=== PATIENT | male | born 1950 | race Caucasian/White ===

== ENCOUNTER 2018-11-20 02:42 | Inpatient (IN) | payer MEDICARE ==
--- NOTE | 2018-11-20 02:53 | ED ---
Chest Pain HPI - General Stated Complaint: Chest Pain Time Seen by Provider: 11/20/18 02:48 - History of Present Illness Initial Comments: 's patient is 68-year-old man transferred here from [facility]. The patient states that he had gone there tonight after he noticed having some substernal chest pain that developed around 12:30 this morning. Patient states that he had been trying to sleep at the time. He rated the pain is moderate, 5 out of 10 intensity. Patient had gone to the hospital where they reportedly found ST elevations inferiorly with reciprocal changes laterally. The patient did receive thrombolytic and transferred here. Patient states that his pain continues at about 3 out of 10 intensity. The patient states that he does not follow with the physician. No known medical history. He does smoke between 2 and 3 packs of cigarettes per week. MD Complaint: chest pain Onset/Timin -: hour(s) Onset: during rest Pain Location: substernal Pain Radiation: none Severity: moderate Severity scale (1-10): 5 Quality: heaviness Consistency: constant Improves With: nothing Worsens With: nothing Treatments Prior to Arrival: aspirin, nitroglycerin, other - Related Data Home Medications Medication Instructions Recorded Confirmed No Known Home Medications 11/20/18 11/20/18 Allergies Allergy/AdvReac Type Severity Reaction Status Date / Time No Known Allergies Allergy Verified 11/20/18 07:41 Review of Systems ROS Statement: Those systems with pertinent positive or pertinent negative responses have been documented in the HPI. ROS Other: All systems not noted in ROS Statement are negative. Constitutional: Denies: fever, chills Respiratory: Denies: cough, dyspnea Cardiovascular: Reports: chest pain. Denies: palpitations, edema Gastrointestinal: Denies: abdominal pain, vomiting, melena, hematochezia Genitourinary: Denies: dysuria, hematuria Musculoskeletal: Denies: back pain Skin: Denies: rash Neurological: Denies: headache, weakness Hematological/Lymphatic: Denies: easy bleeding EKG Findings - EKG Results: EKG: interpreted by CELIA, sinus rhythm (Rate 64 bpm), normal axis - SC, Pacemaker, Normal: Myocardial infarction: inferior SC (acute or recent) General Exam General appearance: alert, in no apparent distress Head exam: Present: atraumatic, normocephalic Eye exam: Present: normal appearance. Absent: scleral icterus, conjunctival injection ENT exam: Present: normal oropharynx Neck exam: Present: normal inspection Respiratory exam: Present: normal lung sounds bilaterally. Absent: respiratory distress, wheezes, rales, rhonchi, stridor Cardiovascular Exam: Present: regular rate, normal rhythm, normal heart sounds. Absent: systolic murmur, diastolic murmur, rubs, gallop GI/Abdominal exam: Present: soft. Absent: distended, tenderness, guarding, rebound, rigid, mass Extremities exam: Present: normal inspection, normal capillary refill. Absent: pedal edema, calf tenderness Back exam: Present: normal inspection. Absent: CVA tenderness (R), CVA tenderness (L) Neurological exam: Present: alert Skin exam: Present: warm, dry, intact, normal color. Absent: rash Course Vital Signs 11/20/18 11/20/18 11/20/18 02:42 02:54 03:02 Temperature 98.0 F Pulse Rate 62 72 Respiratory 16 18 18 Rate Blood Pressure 173/85 163/77 O2 Sat by Pulse 98 99 Oximetry - Reevaluation(s) Reevaluation #1: 11/20/18 02:52 Case discussed with cardiology and dental laboratory technician apprentice was activated. Critical Care Time Critical Care Time: Yes (35 minutes) Disposition Clinical Impression: STEMI (ST elevation myocardial infarction) Disposition: ADMITTED IP TO THIS HOSP Condition: Critical Is patient prescribed a controlled substance at d/c from ED?: No
[2018-11-20 03:01] LABS: HCT 38.4 % (39.0-53.0); HGB 13.2 gm/dL (13.0-17.5); MCH 30.2 pg (25.0-35.0); MCHC 34.3 g/dL (31.0-37.0); Mean Platelet Volume 6.8; Platelet Count 243 k/uL (150-450); RBC 4.37 m/uL (4.30-5.90); RDW 14.6 % (11.5-15.5); WBC 13.7 k/uL (3.8-10.6)
[2018-11-20 03:11] LABS: ALT 48 U/L (21-72); AST 45 U/L (17-59); African American GFR (CKD) >90 (>60 ml/min/1.73 sqM); Albumin 3.3 g/dL (3.5-5.0); Alkaline Phosphatase 62 U/L (38-126); Anion Gap 8 mmol/L; Blood Urea Nitrogen 22 mg/dL (9-20); Calcium 7.5 mg/dL (8.4-10.2); Carbon Dioxide 22 mmol/L (22-30); Chloride 112 mmol/L (98-107); Glucose 124 mg/dL (74-99); Potassium 3.3 mmol/L (3.5-5.1); Sodium 142 mmol/L (137-145); Total Bilirubin 0.2 mg/dL (0.2-1.3); Total Protein 6.3 g/dL (6.3-8.2)
[2018-11-20] MEDS ORDERED: fentaNYL (PF) 50 MCG/ML 2 ML AMP ONE (03:31)
[2018-11-20] MEDS ORDERED: LIDOCAINE 1% INJ 10MG/ML (20 ML MDV) ONE (03:31)
[2018-11-20 03:34] LABS: Creatine Kinase MB 2.2 ng/mL (0.0-2.4)
[2018-11-20 03:42] LABS: Troponin I 0.331 ng/mL (0.000-0.034)
[2018-11-20] MEDS ORDERED: LIDOCAINE 1% INJ 10MG/ML (20 ML MDV) SQ ONE ×2 (03:42→03:43)
[2018-11-20] MEDS ORDERED: MIDAZOLAM (PF) 2 MG/2 ML VIAL IVP ONE (03:42)
[2018-11-20] MEDS ORDERED: fentaNYL (PF) 50 MCG/ML 2 ML AMP IVP ONE (03:42)
[2018-11-20] MEDS ORDERED: IV FLUID CONTINUATION 1,000 ML IV ONE (03:44)
[2018-11-20] MEDS ORDERED: BIVALIRUDIN 250 MG in SODIUM CHLORIDE 0.9% 50 ML IV ONE ×4 (03:50)
[2018-11-20] MEDS ORDERED: BIVALIRUDIN BOLUS 250 MG/50 ML IV ONE ×2 (03:50)
[2018-11-20] MEDS ORDERED: CLOPIDOGREL 75 MG TAB ONE (03:54)
[2018-11-20] MEDS ORDERED: CLOPIDOGREL 75 MG TAB PO ONE ×2 (04:00)
[2018-11-20] MEDS ORDERED: IOPAMIDOL-370 125ML BTL INJ ONE (04:02)
[2018-11-20] MEDS ORDERED: ZOLPIDEM 5 MG TAB PO PRN (04:20)
[2018-11-20] MEDS ORDERED: NITROGLYCERIN SL TABS 0.4 MG TAB SUBLINGUAL PRN (04:20)
[2018-11-20] MEDS ORDERED: ATROPINE SULFATE 0.1 MG/ML 10ML SYRINGE IV PRN (04:20)
[2018-11-20] MEDS ORDERED: RX INFO: IV CONTRAST WAS GIVEN 1 EACH MISC MISCELLANE PRN (04:20)
[2018-11-20] MEDS ORDERED: MAG HYDROX/AL HYDROX/SIMETH 30 ML CUP PO PRN (04:20)
[2018-11-20] MEDS ORDERED: SODIUM CHLORIDE 0.9% 1,000 ML IV SCH (04:30)
[2018-11-20 04:50] LABS: Glucose,Whole Blood 127 mg/dL (75-99)
--- NOTE | 2018-11-20 05:22 | CC ---
CARDIAC CATHETERIZATION REPORT INDICATION: Acute inferior wall myocardial infarction. This is a 68-year-old gentleman who presented to [facility] with acute inferior wall myocardial infarction and had been transferred to [facility] following thrombolytic therapy. I have seen the patient for the first time in the laboratory cureman. He still has some chest discomfort and the ST-segment elevation was still noted, but this has improved significantly compared to where the patient was initially. Other than smoking, he does not have any other risk factors. He Is not on any medication. PROCEDURE NOTE: After obtaining informed consent, left heart catheterization and coronary angiogram are performed via the right femoral artery using standard Randi catheters. The patient tolerated the procedure well without any obvious immediate complications. FINDINGS: 1. HEMODYNAMICS: Central aortic pressure is 130/70 mm. 2. ANGIOGRAPHIC DATA: Left main coronary artery is a very small vessel in fact the LAD and circumflex have a separate origin. Circumflex coronary artery is a large dominant vessel that shows a 99% stenosis as it gives off a large OM branch. The LAD shows mild nonobstructive coronary artery disease. Right coronary artery is a small nondominant vessel. On the initial evaluation, it appeared as if the PDA occluded, but it appears that it is just a small nondominant vessel and the lesion is in the circumflex. PLAN: A 99% stenosis involving circumflex coronary artery. Dr. Crawford the on-call door to door salesman has reviewed the angiographic data and he will proceed with angioplasty of the circumflex coronary artery. MMODL / IJN: [id number] /
--- NOTE | 2018-11-20 05:31 | CONS ---
CONSULTATION CHIEF COMPLAINT: Chest pain Tung is a 68-year-old gentleman with no significant past medical history who presented to [facility] with precordial chest pain. It was 8/10 intensity when he first arrived in the emergency room. The pain actually started one or two hours prior. Patient had some chest discomfort over the weekend and that has resolved and came back again early late last night. He lives in [place] and his drove him to hospital where an EKG showed acute inferior wall myocardial infarction. He received thrombolytics and he was transferred to [facility] for further care. I am evaluating the patient for the first time in the hemodialysis lab technician at [facility]. Patient still complains of chest discomfort 3/10 intensity and [address] the ST segments have improved but then not resolved completely. MEDICATIONS: None. ALLERGIES: None. FAMILY HISTORY: Significant for coronary artery disease in mother. SOCIAL HISTORY: Significant for smoking. REVIEW OF SYSTEMS: Review of system is unremarkable other than what has been mentioned so far. On exam VSS stable no jvd chest cta Herat s1s2 abd soft ext no edema pulses palpable copy operator no focal deficits Patient's labs have been reviewed. Hemoglobin is normal. Creatinine is normal. The first set of troponin is slightly elevated. The EKG shows acute inferior wall myocardial infarction. ASSESSMENT: Acute inferior wall myocardial infarction, status post thrombolytic therapy. PLAN: Patient will undergo emergent cardiac catheterization with to performing angioplasty. He understands risks, benefits. KARLA / BRIGIDA: [id number] / MTDD
--- NOTE | 2018-11-20 05:40 | PTCA ---
PERCUTANEOUSTRANS CORORONARY ANGIOGRAPHY Mr. Herrera is a 68-year-old male who presented to the emergency room in [place] with evidence of an acute inferior myocardial infarction, received thrombolytics. Subsequently underwent cardiac catheterization by Dr. Kothari and was found to have a subtotally occluded mid dominant left circumflex. In view of that, recommendation was made regarding angioplasty and stenting. The procedure as well as the risks and the complications were discussed with the patient who is in full understanding and agreement. PROCEDURE: A 6-Chinese FR4 guiding catheter introduced in the system. After cannulating the left circumflex, a 0.014 balanced medium weight J-wire was advanced across the lesion and positioned distal left circumflex. Subsequently a 2.5 x 12 mm Trek balloon was advanced and one inflation at 8 atmospheres was done. Following that the balloon was removed and a 3.5 x 15 mm Xience Linnette stent was advanced, deployed and post dilated at 14 atmospheres. After the last inflation, after appropriate wait, the balloon and the guidewire were withdrawn back in the guiding catheter. Images were obtained, repeated. Those images reveal stable successful stenting. At that point, the guiding catheter, the balloon and the guidewire were removed and a 6-Chinese tight pigtail catheter was introduced in the left ventricle and a 30-degree BLEDSOE view of the left ventricle was obtained. Following that, catheter and sheaths were removed. Hemostasis was obtained with deployment of an Angio-Seal. There was no immediate complication. Patient was returned to his room in stable condition. Of note, the patient received Angiomax per protocol as well as 300 mg of oral clopidogrel. His pain has improved at the end procedure and his EKG changes have improved. He had chest pain and EKG changes with the inflations. RESULTS: 1. Successful stenting of the mid left circumflex with reduction of stenosis from 95% to 0%. 2. Mildly impaired left ventricular systolic function with inferior wall hypokinesis and ejection fraction of 45% with no significant mitral regurgitation. 3. Incidental abdominal aortic aneurysm, infrarenal. RECOMMENDATION: Patient will be continued on aspirin, Plavix, beta torres, SILVANO inhibitor, and statin. The importance of dual antiplatelet treatment was discussed with the patient and his family who are in full understanding and agreement. Duration of procedure is 26 minutes. MMODL / IJN: [id number] /
[2018-11-20 06:11] LABS: INR 1.3 (<1.2); Partial Thromboplastin Time 53.6 sec (22.0-30.0); Prothrombin Time 13.4 sec (9.0-12.0)
[2018-11-20] MEDS ORDERED: Potassium Replacement Protocol 1 EACH MISC MISCELLANE PRN (06:34)
--- NOTE | 2018-11-20 09:03 | US ---
EXAMINATION TYPE: US duplex aorta DATE OF EXAM: 11/20/2018 COMPARISON: NONE CLINICAL HISTORY: AAA. EXAM MEASUREMENTS: Abdominal Aorta: Proximal: 2.3cm Transverse Mid: 3.1cm Transverse Distal: 5.0cm A/P longitudinal Bifurcation: Right VILMA = 1.9cm A/P, Left VILMA = 1.5cm Transverse AAA = 3.6 x 3.5 x 5.0cm with intimal wall plaque especially noted distally. IMPRESSION: Abdominal aortic aneurysm as noted.
[2018-11-20] MEDS: ASPIRIN 81 MG PO SCH ×2 (09:26→09:32)
[2018-11-20] MEDS: METOPROLOL TARTRATE 25 MG TAB PO SCH ×3 (09:26→20:31)
[2018-11-20] MEDS: POTASSIUM CHLORIDE ER 20 MEQ TAB.ER PO SCH ×2 (09:27→10:49)
[2018-11-20] MEDS: LISINOPRIL 10 MG TAB PO SCH ×2 (09:27→09:46)
--- NOTE | 2018-11-20 09:40 | P.PN ---
Subjective Progress Note Date: 11/20/18 Principal diagnosis: Acute inferior wall myocardial infarction This patient was transferred from [facility] last night with acute inferior wall UT after giving thrombolytic therapy. Patient had a cardiac catheterization and stent placement of the dominant circumflex. Patient seemed to be stable at this time. Denies any chest pain or shortness of breath. However, patient has indicated that he he doesn't want to take medications because he doesn't believe in pharmaceutical. He also indicated he may sign out and leave the hospital. I reinforced with him the importance of taking the medications. Clinically however, patient is stable. Ultrasound of the abdomen showed a aneurysm which is about 5 cm in size. A vascular consult is requested. Prognosis is guarded Objective - Vital Signs Vital signs: Vital Signs Temp 97.8 F 11/20/18 04:45 Pulse 60 11/20/18 07:00 Resp 20 11/20/18 07:00 BP 121/65 11/20/18 07:00 Pulse Ox 94 L 11/20/18 07:00 Intake & Output 11/19/18 11/20/18 11/20/18 18:59 06:59 18:59 Intake Total 274 100 Balance 274 100 Weight 68.039 kg Intake: IV 274 100 Sodium Chloride 0.9% 1, 200 100 000 ml @ 100 mls/hr IV . Q10H [facility] Rx#:[id number] - Exam GENERAL EXAM: Patient is alert and oriented and doesn't appear to be in any acute distress HEENT: Normocephalic. Normal reaction of pupils, equal size, normal range of extraocular motion. No erythema or exudates in the throat. NECK: No masses, no nuchal rigidity. CHEST: No chest wall deformity. LUNGS: Equal air entry with no crackles or wheeze. HEART: S1 and S2 normal with no audible mumurs or gallops. Regular rhythm, f emorals equal on both sides.. ABDOMEN: No hepatosplenomegaly, normal bowel sounds, no guarding or rigidity. SKIN: No rashes CENTRAL NERVOUS SYSTEM: No focal deficits. EXTREMITIES: No cyanosis, clubbing or edema. - Labs CBC & Chem 7: 11/20/18 02:50 11/20/18 02:50 Labs: Abnormal Lab Results - Last 24 Hours (Table) 11/20/18 11/20/18 11/20/18 Range/Units 02:50 02:50 02:50 WBC 13.7 H (3.8-10.6) k/uL Hct 38.4 L (39.0-53.0) % PT (9.0-12.0) sec INR (<1.2) APTT (22.0-30.0) sec Potassium 3.3 L (3.5-5.1) mmol/L Chloride 112 H (98-107) mmol/L BUN 22 H (9-20) mg/dL Glucose 124 H (74-99) mg/dL POC Glucose (mg/dL) (75-99) mg/dL Calcium 7.5 L (8.4-10.2) mg/dL Troponin I 0.331 H* (0.000-0.034) ng/mL Albumin 3.3 L (3.5-5.0) g/dL 11/20/18 11/20/18 11/20/18 Range/Units 04:38 04:56 04:56 WBC (3.8-10.6) k/uL Hct (39.0-53.0) % PT 13.4 H (9.0-12.0) sec INR 1.3 H (<1.2) APTT 53.6 H (22.0-30.0) sec Potassium (3.5-5.1) mmol/L Chloride (98-107) mmol/L BUN (9-20) mg/dL Glucose (74-99) mg/dL POC Glucose (mg/dL) 127 H (75-99) mg/dL Calcium (8.4-10.2) mg/dL Troponin I 1.770 H* (0.000-0.034) ng/mL Albumin (3.5-5.0) g/dL Assessment and Plan (1) Aneurysm of abdominal aorta Current Visit: Yes Status: Acute Code(s): I71.4 - ABDOMINAL AORTIC ANEURYSM, WITHOUT RUPTURE SNOMED Code(s): 390841732 (2) STEMI (ST elevation myocardial infarction) Current Visit: Yes Status: Acute Code(s): I21.3 - ST ELEVATION (STEMI) MYOCARDIAL INFARCTION OF [facility] SITE SNOMED Code(s): 34010160 Plan: Continue current medical therapy. Hopefully patient will be compliant with the medications and hospital stay. Prognosis guarded
--- NOTE | 2018-11-20 11:08 | ECHOF ---
Referral Reason:mi MEASUREMENTS -------- HEIGHT: 177.8 cm WEIGHT: 68.0 kg BP: 129/72 RVIDd: 3.0 cm (< 3.3) IVSd: 1.3 cm (0.6 - 1.1) LVIDd: 4.1 cm (3.9 - 5.3) LVPWd: 1.3 cm (0.6 - 1.1) IVSs: 1.6 cm LVIDs: 3.4 cm LVPWs: 1.6 cm LAESV Index (A-L): 29.62 ml/m Ao Diam: 3.6 cm (2.0 - 3.7) AV Cusp: 2.4 cm (1.5 - 2.6) LA Diam: 3.1 cm (2.7 - 3.8) EPSS: 0.8 cm MV E Wiley: 0.82 m/s MV DecT: 230 ms MV A Wiley: 0.56 m/s MV E/A Ratio: 1.47 RAP: 5.00 mmHg RVSP: 31.49 mmHg MV EF SLOPE: 130.94 mm/s (70 - 150) MV EXCURSION: 1.92 cm (> 18.000) FINDINGS -------- Sinus rhythm. This was a technically adequate study. The left ventricular size is normal. There is moderate concentric left ventricular hypertrophy. O verall left ventricular systolic function is mildly impaired with, an EF between 45 - 50 %. The turner stolic filling pattern is normal for the age of the patient. Basal inferior LV wall motion is hypok inetic. Mid inferior LV wall motion is hypokinetic. The right ventricle is normal in size. Left atrium is mildly dilated by volume. The right atrial size is normal. Interatrial and interventricular septum intact. The aortic valve is trileaflet, and appears structurally normal. No aortic stenosis or regurgitation. The mitral valve is normal. Mild mitral regurgitation is present. Mild tricuspid regurgitation present. There is no evidence of pulmonary hypertension. The right v entricular systolic pressure, as measured by Doppler, is 31.49mmHg. There is no pulmonic regurgitation present. The aortic root size is normal. The inferior vena cava is mildly dilated. There is no pericardial effusion. CONCLUSIONS -------- 1. Sinus rhythm. 2. The left ventricular size is normal. 3. There is moderate concentric left ventricular hypertrophy. 4. Overall left ventricular systolic function is mildly impaired with, an EF between 45 - 50 %. 5. The diastolic filling pattern is normal for the age of the patient. 6. Basal inferior LV wall motion is hypokinetic. 7. Mid inferior LV wall motion is hypokinetic. 8. Left atrium is mildly dilated by volume. 9. The aortic valve is trileaflet, and appears structurally normal. No aortic stenosis or regurgitati on. 10. Mild mitral regurgitation is present. 11. Mild tricuspid regurgitation present. 12. There is no evidence of pulmonary hypertension. 13. There is no pulmonic regurgitation present. 14. The aortic root size is normal. 15. The inferior vena cava is mildly dilated. 16. There is no pericardial effusion. FLASK CARRIER: Nahed Bonilla RDCS
[2018-11-20 11:18] VITALS: BMI 21.5
--- NOTE | 2018-11-20 14:46 | P.HPIM ---
History of Present Illness This is a pleasant 68 years old male with no significant past medical history. Presents because of chest pain underwent urgent cardiac catheterization with stent placement to the circumflex artery. Patient currently is in the ICU lying comfortable with no chest pain or dyspnea. No nausea vomiting. No other complaints. No change in urine or bowel habits. No fever. Also patient found to have abdominal aortic aneurysm of about 5 cm Patient pulses are stable, showing mild leukocytosis of 13.7, potassium 3.3, creatinine 0.8, creatinine is elevated 0.3, 1.7 and 7.4 On further questioning the patient he states that he was not interested in of taking his medication aspirin or Plavix. Patient himself showing signs of understanding when he tells me that he knows that if he is not taking his medication is going to . Risks including but not limited to recurrent SC, heart failure, cardiac arrhythmia, organ dysfunction and/or and he verbalized understanding and acceptance. Patient told me he agrees to take his medication for now. Also patient told me he wants to stay now but he was thinking is clear during the day of leaving AMA. Risks of leaving AMA including but not limited to recurrent SC, CHF, organ dysfunction and/or and he verbalized understanding and acceptance to stay for now. Reasons patient gave for not taking medication that he felt pharmacological company make advantage of the people through these medicines and also imaged to the nurse about demons. When I talked about the patient and he told me that he is a [employer] and sometimes he feels that GOD is talking to him. I'm not sure if this is part of his muslim experience or he has mental problem, we are going to call psychiatrist for further evaluation Review of Systems CONSTITUTIONAL: No fever, no malaise, no fatigue. HEENT: No recent visual problems or hearing problems. Denied any sore throat. CARDIOVASCULAR: No orthopnea, PND, no palpitations, no syncope. PULMONARY: No shortness of breath, no cough, no hemoptysis. GASTROINTESTINAL: No diarrhea, no nausea, no vomiting, no abdominal pain. Normoactive bowel sounds. NEUROLOGICAL: No headaches, no weakness, no numbness. HEMATOLOGICAL: Denies any bleeding or petechiae. GENITOURINARY: Denies any burning micturition, frequency, or urgency. MUSCULOSKELETAL/RHEUMATOLOGICAL: Denies any joint pain, swelling, or any muscle pain. ENDOCRINE: Denies any polyuria or polydipsia. Past Medical History Past Medical History: No Reported History History of Any Multi-Drug Resistant Organisms: None Reported Past Surgical History: No Surgical Hx Reported Past Anesthesia/Blood Transfusion Reactions: No Reported Reaction Past Psychological History: No Psychological Hx Reported Smoking Status: Current every day smoker Past Alcohol Use History: None Reported Past Drug Use History: None Reported Medications and Allergies Home Medications Medication Instructions Recorded Confirmed Type No Known Home Medications 11/20/18 11/20/18 History Allergies Allergy/AdvReac Type Severity Reaction Status Date / Time No Known Allergies Allergy Verified 11/20/18 07:41 Physical Exam Vitals: Vital Signs Temp Pulse Resp BP Pulse Ox 11/20/18 11:00 70 22 117/62 94 L 11/20/18 10:30 58 L 26 H 122/71 94 L 11/20/18 10:00 62 19 120/65 94 L 11/20/18 09:45 68 74 H 120/65 94 L 11/20/18 09:30 64 8 L 121/66 95 11/20/18 09:15 74 11 L 115/69 95 11/20/18 09:00 74 24 121/70 94 L 11/20/18 08:45 64 9 L 123/60 95 11/20/18 08:30 61 21 124/67 94 L 11/20/18 08:15 61 20 122/71 94 L 11/20/18 08:00 76 22 117/67 94 L 11/20/18 07:45 57 L 20 122/64 94 L 11/20/18 07:30 59 L 22 120/71 94 L 11/20/18 07:00 60 20 121/65 94 L 11/20/18 06:45 59 L 22 126/67 93 L 11/20/18 06:30 80 20 129/72 93 L 11/20/18 06:15 64 20 125/69 93 L 11/20/18 06:00 62 19 123/72 93 L 11/20/18 05:45 62 19 129/70 93 L 11/20/18 05:30 78 15 131/70 92 L 11/20/18 05:15 73 21 125/71 95 11/20/18 05:00 77 21 130/70 96 11/20/18 04:45 97.8 F 79 18 134/75 94 L 11/20/18 03:02 72 18 163/77 99 11/20/18 02:54 18 11/20/18 02:42 98.0 F 62 16 173/85 98 Intake and Output 11/19/18 11/20/18 11/20/18 22:59 06:59 14:59 Intake Total 274 500 Output Total 350 Balance 274 150 Intake: IV 274 500 Sodium Chloride 0.9% 1, 200 500 000 ml @ 100 mls/hr IV . Q10H [facility] Rx#:[id number] Output: Urine 350 Other: Weight 68.039 kg 68.039 kg GENERAL: The patient is alert and oriented x3, not in any acute distress. Well developed, well nourished. HEENT: Pupils are round and equally reacting to light. EOMI. No scleral icterus. No conjunctival pallor. Normocephalic, atraumatic. No pharyngeal erythema. No thyromegaly. CARDIOVASCULAR: S1 and S2 present. No murmurs, rubs, or gallops. PULMONARY: Chest is clear to auscultation, no wheezing or crackles. ABDOMEN: Soft, nontender, nondistended, normoactive bowel sounds. No palpable organomegaly. MUSCULOSKELETAL: No joint swelling or deformity. EXTREMITIES: No cyanosis, clubbing, or pedal edema. NEUROLOGICAL: Gross neurological examination did not reveal any focal deficits. SKIN: No rashes. No petechiae Results CBC & Chem 7: 11/20/18 02:50 11/20/18 02:50 Labs: Abnormal Lab Results - Last 24 Hours (Table) 11/20/18 11/20/18 11/20/18 Range/Units 02:50 02:50 02:50 WBC 13.7 H (3.8-10.6) k/uL Hct 38.4 L (39.0-53.0) % PT (9.0-12.0) sec INR (<1.2) APTT (22.0-30.0) sec Potassium 3.3 L (3.5-5.1) mmol/L Chloride 112 H (98-107) mmol/L BUN 22 H (9-20) mg/dL Glucose 124 H (74-99) mg/dL POC Glucose (mg/dL) (75-99) mg/dL Calcium 7.5 L (8.4-10.2) mg/dL Troponin I 0.331 H* (0.000-0.034) ng/mL Albumin 3.3 L (3.5-5.0) g/dL 11/20/18 11/20/18 11/20/18 Range/Units 04:38 04:56 04:56 WBC (3.8-10.6) k/uL Hct (39.0-53.0) % PT 13.4 H (9.0-12.0) sec INR 1.3 H (<1.2) APTT 53.6 H (22.0-30.0) sec Potassium (3.5-5.1) mmol/L Chloride (98-107) mmol/L BUN (9-20) mg/dL Glucose (74-99) mg/dL POC Glucose (mg/dL) 127 H (75-99) mg/dL Calcium (8.4-10.2) mg/dL Troponin I 1.770 H* (0.000-0.034) ng/mL Albumin (3.5-5.0) g/dL 11/20/18 Range/Units 10:53 WBC (3.8-10.6) k/uL Hct (39.0-53.0) % PT (9.0-12.0) sec INR (<1.2) APTT (22.0-30.0) sec Potassium (3.5-5.1) mmol/L Chloride (98-107) mmol/L BUN (9-20) mg/dL Glucose (74-99) mg/dL POC Glucose (mg/dL) (75-99) mg/dL Calcium (8.4-10.2) mg/dL Troponin I 7.470 H* (0.000-0.034) ng/mL Albumin (3.5-5.0) g/dL Thrombosis Risk Factor Assmnt - Choose All That Apply Any of the Below Risk Factors Present?: Yes Each Factor Represents 1 point: Acute SC Other Risk Factors: Yes Each Risk Factor Represents 2 Points: Age 61-74 years Other congenital or acquired thrombophilia - If yes, enter type in comment: No Thrombosis Risk Factor Assessment Total Risk Factor Score: 3 Thrombosis Risk Factor Assessment Level: Moderate Risk Assessment and Plan Assessment: Acute ST elevation myocardial infarction Abdominal aortic aneurysm Noncompliance to medicine, patient consult and he agrees to take his medication currently Patient refusal to take medication, things, talking to him. Rule out p sychiatrist disease Mild leukocytosis, mostly reactive Plan: This is a pleasant 68 years old male who presents with STEMI, status post stent placement in the circumflex artery. Cardiology evaluation is appreciated. Continue with aspirin and Plavix. However patient does not want to take medication upon discharge. Potential for intensive therapy is explained to the patient risks including but not limited to recurrent myocardial infarction, heart failure and are explained to the patient and he verbalized understanding and he accepts to take medication. Also we'll ask psychiatrist evaluation for assistance in his mentation, and to assess his capacity to make medical decision. I already discussed with the staff and bedside as the patient cannot leave by signing MAC first get cleared by psychiatrist, however patient agrees to send the hospital for now and continue therapy . Vascular surgery already been consulted Labs and medication were reviewed.. Continue same treatment. Continue with symptomatic treatment. Resume home medication. Monitor lytes and vitals. DVT and GI prophylaxis. Further recommendations of the clinical course of the patient Prognosis is guarded
--- NOTE | 2018-11-20 16:45 | P.CON ---
Consult Note - . Consult date: 11/20/18 Assessment/Plan:: Patient is a 68-year-old male who is evaluated today for recently diagnosed 5 cm infrarenal abdominal aortic aneurysm. The patient was recently admitted to the hospital for coronary disease having suffered an anterior wall myocardial i nfarction. The patient denies any previous knowledge of his abdominal aortic aneurysm. He denies any back pain. He denies any symptoms of claudication and has never experienced a cerebrovascular accident. Social history significant for tobacco use smoking 2-3 packs of cigarettes weekly although he previously smoked approximately a pack of cigarettes daily. My evaluation today revealed a very pleasant appearing gentleman who is alert cooperative in no apparent distress. He was sitting in a chair with his legs elevated. Vital signs are stable and patient is afebrile. Neck is supple and free of adenopathy or bruit. Heart: regular. Abdomen: Is soft with normoactive bowel sounds. No tenderness to palpation of the aorta is noted. Extremities: Femoral, popliteal and posterior tibial pulses are intact bilaterally. There is no leg tenderness, cyanosis or edema. Review of laboratory values demonstrates hemoglobin 13.2 and hematocrit of 38.4. White cell count 13.7 and platelet count is 243. Review of computed tomography scan of the abdomen demonstrates a 5 cm intrarenal abdominal aortic aneurysm without evidence of dissection or acute inflammatory changes. I had a discussion with the patient in reference to his recently diagnosed aneurysm. No intervention is warranted at this time. I would like to see the patient in the office in 6 months in routine follow-up surveillance to evaluate for growth of the aneurysm. I will be happy to see the patient sooner should symptoms warrant. Thank you very much for allowing me to participate in the care of your patient. I trust this consultation is useful to you. If I can be of future assistance please feel free to contact me.
[2018-11-20] MEDS ORDERED: ATORVASTATIN 80 MG TAB PO SCH (21:00)
[2018-11-21] MEDS: CLOPIDOGREL 75 MG TAB PO SCH ×2 (04:44→09:27)
[2018-11-21 05:40] LABS: Anisocytosis Slight; Basophils # (A) 0.1 k/uL (0-0.2); Basophils % (A) 1 %; Eosinophils # (A) 0.2 k/uL (0-0.7); Eosinophils % (A) 2 %; HCT 40.9 % (39.0-53.0); HGB 13.6 gm/dL (13.0-17.5); Lymphocytes # (A) 1.6 k/uL (1.0-4.8); Lymphocytes % (A) 19 %; MCH 29.4 pg (25.0-35.0); MCHC 33.3 g/dL (31.0-37.0); MCV 88.2 fL (80.0-100.0); Mean Platelet Volume 6.8; Monocytes # (A) 0.7 k/uL (0-1.0); Monocytes % (A) 8 %; Neutrophils # (A) 5.8 k/uL (1.3-7.7); Neutrophils % (A) 69 %; Platelet Count 258 k/uL (150-450); RBC 4.64 m/uL (4.30-5.90); RDW 16.9 % (11.5-15.5); WBC 8.5 k/uL (3.8-10.6)
[2018-11-21 05:55] LABS: African American GFR (CKD) >90 (>60 ml/min/1.73 sqM); Anion Gap 7 mmol/L; Blood Urea Nitrogen 18 mg/dL (9-20); Calcium 8.9 mg/dL (8.4-10.2); Carbon Dioxide 27 mmol/L (22-30); Chloride 106 mmol/L (98-107); Glucose 89 mg/dL (74-99); Potassium 4.3 mmol/L (3.5-5.1); Sodium 140 mmol/L (137-145)
[2018-11-21] MEDS: ASPIRIN 81 MG PO SCH (08:02)
[2018-11-21] MEDS: LISINOPRIL 10 MG TAB PO SCH (09:06)
[2018-11-21] MEDS: METOPROLOL TARTRATE 25 MG TAB PO SCH (09:07)
--- NOTE | 2018-11-21 10:42 | P.PN ---
Subjective Progress Note Date: 11/21/18 Principal diagnosis: Acute inferior wall myocardial infarction This patient was transferred from [facility] last night with acute inferior wall [place] after giving thrombolytic therapy. Patient had a cardiac catheterization and stent placement of the dominant circumflex. Patient seemed to be stable at this time. Denies any chest pain or shortness of breath. However, patient has indicated that he he doesn't want to take medications because he doesn't believe in pharmaceutical. He also indicated he may sign out and leave the hospital. I reinforced with him the importance of taking the medications. Clinically however, patient is stable. Ultrasound of the abdomen showed a aneurysm which is about 5 cm in size. A vascular consult is requested. Prognosis is guarded. 11/21/2018: This patient has remained stable overnight. Denies any chest pain, shortness of breath, dizziness or syncope. No arrhythmias detected. Patient was evaluated by vascular surgeon. He recommended follow-up in 6 months time. Lungs are clear. Heart is regular. No JVD. No peripheral edema. Groin is soft .vital signs are stable. Patient will continue current medical therapy. P atient to be transferred to telemetry unit. If stable patient will be discharged home tomorrow. Objective - Vital Signs Vital signs: Vital Signs Temp 97.8 F 11/21/18 08:00 Pulse 61 11/21/18 09:00 Resp 21 11/21/18 09:00 BP 114/59 11/21/18 09:00 Pulse Ox 96 11/21/18 09:00 Intake & Output 11/20/18 11/21/18 11/21/18 18:59 06:59 18:59 Intake Total 600 Output Total 550 500 300 Balance 50 -500 -300 Weight 68.039 kg 66 kg Intake: IV 600 Sodium Chloride 0.9% 1, 600 000 ml @ 100 mls/hr IV . Q10H [facility] Rx#:[id number] Output: Urine 550 500 300 Other: Voiding Method Urinal Toilet # Voids 1 # Bowel Movements 1 - Exam GENERAL EXAM: Patient is alert and oriented and doesn't appear to be in any acut e distress HEENT: Normocephalic. Normal reaction of pupils, equal size, normal range of extraocular motion. No erythema or exudates in the throat. NECK: No masses, no nuchal rigidity. CHEST: No chest wall deformity. LUNGS: Equal air entry with no crackles or wheeze. HEART: S1 and S2 normal with no audible mumurs or gallops. Regular rhythm, femorals equal on both sides.. ABDOMEN: No hepatosplenomegaly, normal bowel sounds, no guarding or rigidity. SKIN: No rashes CENTRAL NERVOUS SYSTEM: No focal deficits. EXTREMITIES: No cyanosis, clubbing or edema. - Labs CBC & Chem 7: 11/21/18 05:05 11/21/18 05:05 Labs: Abnormal Lab Results - Last 24 Hours (Table) 11/20/18 11/20/18 11/21/18 Range/Units 10:53 16:56 05:05 RDW 16.9 H (11.5-15.5) % Troponin I 7.470 H* 5.550 H* (0.000-0.034) ng/mL Assessment and Plan (1) Aneurysm of abdominal aorta Current Visit: Yes Status: Acute Code(s): I71.4 - ABDOMINAL AORTIC ANEURYSM, WITHOUT RUPTURE SNOMED Code(s): 600993832 (2) STEMI (ST elevation myocardial infarction) Current Visit: Yes Status: Acute Code(s): I21.3 - ST ELEVATION (STEMI) MYOCARDIAL INFARCTION OF [facility] SITE SNOMED Code(s): 85214435 Plan: patient is clinically stable. Transfer to telemetry unit. Increase activity. Discharge in the morning
[2018-11-21 13:05] VITALS: TEMP 98.5
--- NOTE | 2018-11-21 15:44 | P.CN ---
Psychiatric Consult - . Consult date: 11/21/18 Consult:: 11/21/18 15:27 IDENTIFYING DATA: This patient is a 68-year-old male who currently lives in a house with his and has one daughter and currently collects Social Security. HISTORY OF PRESENT ILLNESS: The patient was admitted to [facility] as a transfer from [facility] for substernal chest pain which showed to be a STEMI. Patient was taken to the [facility] and given a stent. Patient was also found to have a abdominal aortic aneurysm however was not deemed at this time to have an intervention for it. Psychiatry was consulted by the primary care team regarding possible delusions/hallucinations and capacity as patient has been refusing his certain medications. On review of EMR and from notes patient has been refusing lisinopril, metoprolol statin and Plavix. He was noted in the notes that patient was talking about witchcraft and demons and not trusting pharmaceutical companies. When procedure writer attempted to interview patient at the bedside patient's was with patient and refused to leave the room. When asked politely patient's became upset and demanded why she needed to leave and patient also became upset and wanted to leave the hospital. After some time patient's was agreeable to leave the room and have the patient be interviewed by himself. Patient spoke about him having concerns over reading a study on the Internet about patient's brains shrinking when they are on cholesterol medications and they have Alzheimer's and stated that he does not trust pharmaceutical companies and spoke about "[employer]" and how it was a prophet seeking business. Patient also spoke about using natural supplements to help him. Patient spoke about his symptoms coming into the hospital and how he was found to have a heart attack and had a cardiac cath which helped her move a "blockage" from his heart. Patient correctly stated that she does need the Plavix and aspirin to thin his blood "so I don't get a heart attack again". Patient did however not want to take the metoprolol and the cholesterol medication because he stated that he would like to do his own research on it and does not believe that it is absolutely necessary at this time. He did state however that he would be following up for his appointments and states that "I wouldn't ever think of not following up". He also explained that there may be a possibility of further complications after his heart attack and that needs to be monitored. Patient denied any depression or any anxiety at this time. He states that he is sleeping well and has good appetite. At this time patient denies any suicidal or homical ideations, intent or plan. Patient denies any auditory, visual hallucinations and denies any paranoia. PAST PSYCHIATRIC HISTORY: denies. PAST MEDICAL HISTORY: Patient most recently had a myocardial infarction with a stent placed.. ALLERGIES: No known drug allergies. CHEMICAL DEPENDENCY HISTORY: denies. FAMILY PSYCHIATRIC/SUBSTANCE USE HISTORY: denies SOCIAL HISTORY: He states that he currently lives with his in a house and has one daughter and collects Social Security. 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 MENTAL STATUS EXAM: General Appearance: Patient appears to be stated age is alert, directable, and cooperative. Patient was initially guarded however this improved during the interview. Patient has fair hygiene and fair grooming. Behavior: Patient is calmly lying in bed without any agitated behavior. Speech: Patient's speech is fluent and nonpressured. Mood/Affect: Patient reports their mood is fine, affect is congruent Suicidality/Homicidality: Patient denies having any suicidal or homicidal ideation intent or plan. Perceptions: Patient denies any auditory or visual hallucinations. Though content/process: Thought process is linear and goal-directed. Patient does speak about cheondoism and God several times during the interview. Memory and concentration: AOX3, grossly intact for the purposes of this session. Can spell "WORLD" backwards Judgment and insight: Superficial IMPRESSIONS: Adjustment disorder unspecified PLAN: -At this time patient does NOT meet criteria for inpatient psychiatric admission. -Patient DOES have decision making capacity at this time and is able to reason through and communicate/appreciate most of the risks, benefits and alternatives to treatment. Patient still has superficial insight and states that he would like to follow up for his condition with his doctor and appreciates the gravity of not following up and not taking essential medications which could result in his or arrhythmia. At this time patient is agreeable to be monitored overnight and wanted to do his own research and get another opinion on selective medications. -Would recommend the following medication changes/additions: Would not recommend any changes to medications at this time. -Patient is cleared from a psychiatric standpoint and psychiatry will sign off at this point
[2018-11-21 17:41] VITALS: BP 147/81; PULSE 75; RESP 18
--- NOTE | 2018-11-22 07:53 | P.DS ---
Providers Date of admission: 11/20/18 03:36 Attending physician: Jose Roberto Echeverria Consults: 11/20/18 04:20 Consult Physician Routine Consulting Provider: [facility] Consult Reason/Comments: Post Interventional patient Do you want consulting provider notified?: Already Contacted 11/20/18 09:34 Consult Physician ONCE Consulting Provider: Jorge A Almeida Consult Reason/Comments: aneurysm of aorta Do you want consulting provider notified?: Yes 11/20/18 16:07 Consult Physician Urgent Consulting Provider: Anthony Abel Consult Reason/Comments: possible delusions and hallucinations and assess capacity Do you want consulting provider notified?: Yes Primary care physician: Stated None Hospital Course: Diagnoses: Acute ST elevation myocardial infarction, status post cardiac cath and stent placement to the circumflex artery. Abdominal aortic aneurysm Non-adherance to medicine, patient consult and he agrees to take his medication of aspirin and Plavix only Mild leukocytosis, mostly reactive. Resolved Hospital course: This is a pleasant 68 years old male with no significant past medical history. Presents because of chest pain underwent urgent cardiac catheterization with stent placement to the circumflex artery. Patient patient showed interval improvement with no chest pain or dyspnea. No nausea vomiting. No other complaints. No change in urine or bowel habits. No fever. Also patient found to have abdominal aortic aneurysm of about 5 cm. Cardio- thoracic surgery recommended outpatient follow-up in 6 months Patient was refusing to take all his medication including aspirin/Plavix, and metoprolol and lisinopril. in view of pt refusal to take medication which might have bad burden on his heart and health, associated with pt stating that GOD talks to him , and mentioned daemons and Satan, there was concern about his mental health and his capacity to make medical decision. psychiatrist consult was called for this reason. pt and at bed side first refused to do the psych consult and later on pt agrees to it. psychiatrist found pt with no mental illness and able to make medical decision. also a meeting was held including me with the social insurance adviser Ollie and pt and and explained to them the importance of assessing pt and the outcome as well as his medical plan and health and they showed understanding all their questions were answered to their satisfaction. also after explaining the risks and benefits and alternatives to the pt and risks including but not limited to recurrent heart attack, heart failure, arrhythmia and/or , he verbalized understanding and acceptance to take some of his medication including plavix and aspirin. He still refusing to take other medications like metoprolol , lisinopril and Lipitor although it was explained to him that these medications are recommended for him by the soils engineer and they were essential to his health. he and his wanted a second opinion, because of this it was mentioned as "continued medication" on the discharge paper but without providing scripts for them so he can have records to search about these medication and to talk to his doctor about them if he wants, pt and agree with this plan. scripts are provided only for plavix and aspirin as he stated these are the only medications he wants to take currently on the day of discharge he returned to his baseline with no chest pain, no dyspnea, no change in urine or bowel habit , no nausea or vomiting , no abd pain , he is tolerating diet well . no fever Patient wants to go home the same day but the soils engineer wanted to monitor him over night and would be discharged in the next morning, i called and spoke with the soils engineer and explained the situation for him and pt wishes to leave and he agrees to discharge pt on the same day. Patient was cleared for discharge by soils engineer team. Problems and management plan were discussed with the patient and he verbalized understanding and acceptance Patient was found stable and can be discharged home however he needs follow-up as an outpatient. Patient was instructed to follow up with PCP within one week and patient agrees. Patient states he has no PCP, however he agrees to follow up with Dr. Tan but he wants to make his own appointments. Contact information was provided. Also patient was instructed to follow up with his soils engineer within 1-2 weeks and he agrees. and to follow up with the cardio-thoracic surgeon in 6 months for aneurysm monitor and he agrees as well Gen: patient is a AAOx3, no distress CVS: S1-S2, RRR, no murmur Lungs: B/L CTA, no wheezing Abdomen: soft, no distention, no tenderness, positive bowel sounds Extremity: no leg edema or induration Time spent more than 35 minutes Patient Condition at Discharge: Critical Plan - Discharge Summary New Discharge Prescriptions: New Aspirin 81 mg PO DAILY #30 chew Atorvastatin [Lipitor] 80 mg PO HS tab Metoprolol Tartrate [Lopressor] 25 mg PO BID tab Clopidogrel [Plavix] 75 mg PO DAILY #30 tab Lisinopril [Zestril] 5 mg PO DAILY tab Discharge Medication List Aspirin 81 mg PO DAILY #30 chew 11/21/18 [Rx] Atorvastatin [Lipitor] 80 mg PO HS tab 11/21/18 [Rx] Clopidogrel [Plavix] 75 mg PO DAILY #30 tab 11/21/18 [Rx] Lisinopril [Zestril] 5 mg PO DAILY tab 11/21/18 [Rx] Metoprolol Tartrate [Lopressor] 25 mg PO BID tab 11/21/18 [Rx] Follow up Appointment(s)/Referral(s): Josiah Baires MD [REFERRING] - 1 Week Jason Hall DO [Doctor of Osteopathic Medicine] - 6 Weeks (or sooner if symptoms develops like abdominal pain for your aortic aneurysm . follow up in 6 months) None,Stated [Primary Care Provider] - 1-2 days Ana Amato MD [STAFF PHYSICIAN] - 2 Weeks Patient Instructions/Handouts: Heart Attack (DC), Heart Healthy Diet (DC), Heart Catheterization (DC) Activity/Diet/Wound Care/Special Instructions: cardiac diet activity is limited till you see your doctor Discharge Disposition: HOME SELF-CARE
== END 2018-11-21 18:01 | disposition home or self-care (01) | DRG 247 ==
LOC: EC 02:42 → 2SICU 03:36
PROVIDERS: ADMIT Hospitalist; ATTEND Hospitalist
PROC: B2111ZZ Fluoroscopy of Multiple Coronary Arteries using Low Osmolar Contrast (ICD-10-PCS; 2018-11-20)
PROC: 027034Z Dilation of Coronary Artery, One Artery with Drug-eluting Intraluminal Device, Percutaneous Approach (ICD-10-PCS; principal; 2018-11-20 03:19)
PROC: 4A023N7 Measurement of Cardiac Sampling and Pressure, Left Heart, Percutaneous Approach (ICD-10-PCS; 2018-11-20 03:19)
DX: I21.19 ST elevation (STEMI) myocardial infarction involving other coronary artery of inferior wall (principal); R44.3 Hallucinations, unspecified; D72.829 Elevated white blood cell count, unspecified; F17.210 Nicotine dependence, cigarettes, uncomplicated; I71.4 Abdominal aortic aneurysm, without rupture; Z82.49 Family history of ischemic heart disease and other diseases of the circulatory system; Z91.14 Patient's other noncompliance with medication regimen; F43.20 Adjustment disorder, unspecified
CPT/HCPCS: 36415; 80048; 80053; 82550; 82553; 84484; 85025; 85027; 85610; 85730; 93005; 93306; 93458; 93979; 99291; C1874

== ENCOUNTER 2019-10-29 23:11 | Emergency (ER) | payer MEDICARE ==
[2019-10-29 23:15] VITALS: BP 139/70; RESP 20; TEMP 98.3
--- NOTE | 2019-10-29 23:21 | ED ---
Chest Pain HPI - General Chief Complaint: Chest Pain Stated Complaint: Chest Pain Time Seen by Provider: 10/29/19 23:20 Source: patient, family, RN notes reviewed, old records reviewed Mode of arrival: ambulatory Limitations: no limitations - History of Present Illness Initial Comments: This is a 69-year-old male DF for evaluation patient has history of CAD with stent about 8 months ago. Patient has had real no chest pain since and denies chest pain today he did have chest pain returns for stent placed. No travel history or sick contacts. Patient states he followed but clammy uneasy while sitting at his house symptoms started patient's brings patient to emergency department sure half way here he was feeling better with debating going back home 1 EKG. Patient was decreased stress lately his neighbor found of his brother committed suicide, he also noted this is kind daughter hasn't checked in for mental health for suicidal attempt as well. Patient again is without symptoms now no chest pain or shortness of breath MD Complaint: chest pain, other (Patient denies chest pain had an episode of diaphoresis and feeling of uneasiness prior to arrival) -: hour(s) (2) Onset: during rest Pain Location: substernal (No real pain) Pain Radiation: none Severity: mild Consistency: constant, now resolved Improves With: other (Time patient symptoms resolved during drive to ER) Worsens With: other (Anxiety patient admits increased stress) Context: other (Does not feel like prior heart attack) Anginal Symptoms: other (None) Other Symptoms: other (None) Treatments Prior to Arrival: none - Related Data Previous Rx's Medication Instructions Recorded Aspirin 81 mg PO DAILY #30 chew 11/21/18 Atorvastatin [Lipitor] 80 mg PO HS tab 11/21/18 Clopidogrel [Plavix] 75 mg PO DAILY #30 tab 11/21/18 Metoprolol Tartrate [Lopressor] 25 mg PO BID tab 11/21/18 lisinopriL [Zestril] 5 mg PO DAILY tab 11/21/18 Allergies Allergy/AdvReac Type Severity Reaction Status Date / Time No Known Allergies Allergy Verified 10/29/19 23:15 Review of Systems ROS Statement: Those systems with pertinent positive or pertinent negative responses have been documented in the HPI. ROS Other: All systems not noted in ROS Statement are negative. EKG Findings - EKG Comments: EKG Findings:: EKG sinus rhythm 71 [place] 138 QRS 90 QTC 402 Past Medical History Past Medical History: Myocardial Infarction ([place]) Additional Past Medical History / Comment(s): 11/10/18 Aortic iliac vascular US indicated a 2.3 X 3.5 X 5.0 cm aneurysm Last Myocardial Infarction Date:: 11/20/18 History of Any Multi-Drug Resistant Organisms: None Reported Past Surgical History: Heart Catheterization With Stent Additional Past Surgical History / Comment(s): Stent to the circ. 11/20/18 Past Anesthesia/Blood Transfusion Reactions: No Reported Reaction Date of Last Stent Placement:: 11/20/2018 Past Psychological History: No Psychological Hx Reported Smoking Status: Current some day smoker Past Alcohol Use History: None Reported Past Drug Use History: None Reported General Exam Limitations: no limitations General appearance: alert, in no apparent distress Head exam: Present: atraumatic, normocephalic, normal inspection Eye exam: Present: normal appearance, PERRL, EOMI. Absent: scleral icterus, conjunctival injection, periorbital swelling ENT exam: Present: normal exam, mucous membranes moist Neck exam: Present: normal inspection. Absent: tenderness, meningismus, lymphadenopathy Respiratory exam: Present: normal lung sounds bilaterally. Absent: respiratory distress, wheezes, rales, rhonchi, stridor Cardiovascular Exam: Present: regular rate, normal rhythm, normal heart sounds. Absent: systolic murmur, diastolic murmur, rubs, gallop, clicks GI/Abdominal exam: Present: soft, normal bowel sounds. Absent: distended, tenderness, guarding, rebound, rigid Extremities exam: Present: normal inspection, full ROM, normal capillary refill. Absent: tenderness, pedal edema, joint swelling, calf tenderness Back exam: Present: normal inspection Neurological exam: Present: alert, oriented X3, CN II-XII intact Psychiatric exam: Present: normal affect, normal mood Skin exam: Present: warm, dry, intact, normal color. 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 Patient's history of CAD encouraged to possibly see spiral spring winder he states he does not something he wants to do today. Patient is a symptomatic and can be discharged home Disposition Clinical Impression: Chest pain, Stress reaction Disposition: HOME SELF-CARE Condition: Undetermined Instructions (If sedation given, give patient instructions): Chest Pain (ED) Is patient prescribed a controlled substance at d/c from ED?: No Referrals: None,Stated [Primary Care Provider] - 1-2 days
[2019-10-29 23:30] VITALS: PULSE 71
== END 2019-10-30 00:11 | disposition home or self-care (01) ==
LOC: EC 23:11
DX: F43.9 Reaction to severe stress, unspecified (principal); R07.9 Chest pain, unspecified; R61 Generalized hyperhidrosis; I25.10 Atherosclerotic heart disease of native coronary artery without angina pectoris; F17.200 Nicotine dependence, unspecified, uncomplicated; I25.2 Old myocardial infarction; Z95.1 Presence of aortocoronary bypass graft; Z95.5 Presence of coronary angioplasty implant and graft
CPT/HCPCS: 93005; 99285

== ENCOUNTER 2020-06-01 00:52 | Observation (INO) | payer MEDICARE ==
[2020-06-01 01:08] VITALS: RESP 18
--- NOTE | 2020-06-01 01:12 | ED ---
Chest Pain HPI - General Chief Complaint: Chest Pain Stated Complaint: Chest tightness Time Seen by Provider: 06/01/20 01:09 Source: patient, RN notes reviewed, old records reviewed Mode of arrival: wheelchair Limitations: no limitations - History of Present Illness Initial Comments: This is a 69-year-old male DF for evaluation patient Dese for evaluation regards to chest pain. She has history of WI, coronary chest prior tightness with exertion. Especially worse with exertion. Again patient does have history of cardiac disease. Patient currently complaining of anterior chest heaviness and tightness. Patient does have one prior stent. No recent travel history or sick contacts no fever cough or congestion MD Complaint: chest pain -: hour(s) Onset: during exertion Pain Location: substernal Pain Radiation: LUE Severity: moderate Severity scale (1-10): 4 Quality: tightness, heaviness Consistency: constant Improves With: nothing Worsens With: exertion, movement Context: other (History of CAD with WI) Anginal Symptoms: nausea, dyspnea, sense of impending doom Other Symptoms: palpitations Treatments Prior to Arrival: none - Related Data Previous Rx's Medication Instructions Recorded Aspirin 81 mg PO DAILY #30 chew 11/21/18 Allergies Allergy/AdvReac Type Severity Reaction Status Date / Time No Known Allergies Allergy Verified 06/01/20 00:57 Review of Systems ROS Statement: Those systems with pertinent positive or pertinent negative responses have been documented in the HPI. ROS Other: All systems not noted in ROS Statement are negative. 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 11/20/18 Past Anesthesia/Blood Transfusion Reactions: No Reported Reaction Date of Last Stent Placement:: 11/20/2018 Past Psychological History: No Psychological Hx Reported Smoking Status: Current some day smoker Past Alcohol Use History: None Reported Past Drug Use History: None Reported General Exam Limitations: no limitations General appearance: alert, in no apparent distress Head exam: Present: atraumatic, normocephalic, normal inspection Eye exam: Present: normal appearance, PERRL, EOMI. Absent: scleral icterus, conjunctival injection, periorbital swelling ENT exam: Present: normal exam, mucous membranes moist Neck exam: Present: normal inspection. Absent: tenderness, meningismus, lymphadenopathy Respiratory exam: Present: normal lung sounds bilaterally. Absent: respiratory distress, wheezes, rales, rhonchi, stridor Cardiovascular Exam: Present: regular rate, normal rhythm, normal heart sounds. Absent: systolic murmur, diastolic murmur, rubs, gallop, clicks GI/Abdominal exam: Present: soft, normal bowel sounds. Absent: distended, tenderness, guarding, rebound, rigid Extremities exam: Present: normal inspection, full ROM, normal capillary refill. Absent: tenderness, pedal edema, joint swelling, calf tenderness Back exam: Present: normal inspection Neurological exam: Present: alert, oriented X3, CN II-XII intact Psychiatric exam: Present: normal affect, normal mood Skin exam: Present: warm, dry, intact, normal color. Absent: rash Course Vital Signs 06/01/20 06/01/20 00:54 01:00 Temperature 98.2 F Pulse Rate 64 60 Respiratory 20 18 Rate Blood Pressure 145/76 O2 Sat by Pulse 97 99 Oximetry - Reevaluation(s) Reevaluation #1: 06/01/20 02:11 Medical record is reviewed Reevaluation #2: 06/01/20 02:11 Patient still with episodic chest pain Reevaluation #3: 06/01/20 02:11 Spoke patient regarding findings and results - Consultations Consultation #1: Spoke with [facility] regarding admission there agreeable Chest Pain MDM - MDM 69 male to the ER with history of WI and stent, patient be admitted for chest pain observation Critical Care Time Critical Care Time: Yes Total Critical Care Time: 31 Disposition Clinical Impression: Chest pain, Unstable angina pectoris Disposition: ADMITTED IP TO THIS HOSP Condition: Undetermined Is patient prescribed a controlled substance at d/c from ED?: No Referrals: None,Stated [Primary Care Provider] - 1-2 days
[2020-06-01] MEDS ORDERED: MORPHINE SULFATE 4 MG/ML SYRINGE IV PRN (02:12)
[2020-06-01] MEDS ORDERED: NITROGLYCERIN SL TABS 0.4 MG TAB SUBLINGUAL PRN (02:12)
[2020-06-01] MEDS ORDERED: ASPIRIN 81 MG PO STA (02:12)
[2020-06-01 02:13] LABS: Basophils % (A) 0 %; Eosinophils # (A) 0.3 k/uL (0-0.7); Eosinophils % (A) 4 %; HCT 41.2 % (39.0-53.0); HGB 13.9 gm/dL (13.0-17.5); Lymphocytes # (A) 1.5 k/uL (1.0-4.8); Lymphocytes % (A) 24 %; MCH 30.4 pg (25.0-35.0); MCHC 33.8 g/dL (31.0-37.0); MCV 89.8 fL (80.0-100.0); Mean Platelet Volume 6.7; Monocytes # (A) 0.6 k/uL (0-1.0); Monocytes % (A) 9 %; Neutrophils # (A) 3.7 k/uL (1.3-7.7); Neutrophils % (A) 60 %; Platelet Count 308 k/uL (150-450); RBC 4.59 m/uL (4.30-5.90); RDW 14.8 % (11.5-15.5); WBC 6.2 k/uL (3.8-10.6)
[2020-06-01 02:27] LABS: INR 0.9 (<1.2); Partial Thromboplastin Time 22.3 sec (22.0-30.0); Prothrombin Time 9.8 sec (9.0-12.0)
--- NOTE | 2020-06-01 02:29 | XR ---
EXAM: XR Chest, 1 View CLINICAL HISTORY: ITS.REASON XR Reason: Chest Pain TECHNIQUE: Frontal view of the chest. COMPARISON: 11/20/2018 FINDINGS: Lungs: Similar, somewhat coarse interstitial markings predominantly in the right mid to lower lung zone. Stable calcified granuloma centrally in the right upper lung zone. No definite new focal consolidation. Pleural space: Unremarkable. No pneumothorax. No large pleural effusion. Heart: Unremarkable. No cardiomegaly. Mediastinum: No significant abnormality identified. The trachea is midline. Bones/joints: Unremarkable. IMPRESSION: Stable examination with chronic interstitial changes noted, similar in location and appearance. No definite focal consolidation or radiographic evidence for florid CHF. No large pleural effusion or pneumothorax.
[2020-06-01 02:33] LABS: Albumin 4.3 g/dL (3.5-5.0); Calcium 9.3 mg/dL (8.4-10.2); Magnesium 2.2 mg/dL (1.6-2.3); Total Bilirubin 0.3 mg/dL (0.2-1.3); Total Protein 7.6 g/dL (6.3-8.2)
[2020-06-01 03:07] VITALS: BP 135/72; PULSE 61; TEMP 97.6
[2020-06-01] MEDS ORDERED: ATORVASTATIN 80 MG TAB PO SCH (09:00)
[2020-06-02] MEDS ORDERED: ASPIRIN 325 MG TAB PO SCH (09:00)
--- NOTE | 2020-06-03 17:01 | HP ---
HISTORY AND PHYSICAL COMBINATION HISTORY AND PHYSICAL AND DISCHARGE SUMMARY: CHIEF COMPLAINT: Chest pain. HISTORY OF PRESENT ILLNESS: This 69-year-old gentleman was admitted with chest pain. Patient has a previous history of coronary artery disease, but the patient was not willing to stay in the hospital. Patient left the hospital AGAINST MEDICAL ADVICE. Please refer to the staff notes and ER notes for further details. Prognosis is extremely guarded. FINAL DIAGNOSES: 1. Chest pain for evaluation. 2. History of noncompliance. MMODL / IJN: [id number] /
== END 2020-06-01 03:39 | disposition home or self-care (01) ==
LOC: EC 00:52 → 6NMEDSUR 02:12
PROVIDERS: ADMIT Hospitalist; ATTEND Hospitalist
DX: R07.89 Other chest pain (principal); I25.10 Atherosclerotic heart disease of native coronary artery without angina pectoris; R41.89 Other symptoms and signs involving cognitive functions and awareness; I72.3 Aneurysm of iliac artery; R00.2 Palpitations; R11.0 Nausea; R06.00 Dyspnea, unspecified; F17.200 Nicotine dependence, unspecified, uncomplicated; Z79.82 Long term (current) use of aspirin; I25.2 Old myocardial infarction; Z95.5 Presence of coronary angioplasty implant and graft; Z53.29 Procedure and treatment not carried out because of patient's decision for other reasons; Z91.19 Patient's noncompliance with other medical treatment and regimen
CPT/HCPCS: 99285; 99291; 36415; 93005; 83880; 80053; 83690; 83735; 84484; 85025; 85610; 85730; 71045; G0378